=== PATIENT | male | born 1960 | race Caucasian/White ===

== ENCOUNTER 2020-05-25 17:28 | Emergency (ER) | payer OTHER ==
[2020-05-25 18:01] LABS: BASOPHIL 0.9 % (0-2); EOSINOPHIL 2.6 % (0-5); HCT 45.7 % (42.0-52.0); HGB 16.2 g/dl (13.2-18.0); LYMPHOCYTE 14.1 % (15-48); MCH 30.6 pg (25.0-31.0); MCHC 35.4 g/dL (32.0-36.0); MCV 86.2 fL (78.0-100.0); MONOCYTE 6.9 % (0-12); MPV 10.7 fL (6.0-9.5); NEUTROPHIL 75.2 % (41-80); NRBC 0; PLT 197 K/uL (150-400); RDW 12.7 % (11.5-14.0); WBC 9.7 K/uL (4.0-10.5)
[2020-05-25 18:09] LABS: INR 1.02 (0.9-1.2); PROTHROMBIN TIME 12.7 SECONDS (11.4-13.6); PTT 27.6 SECONDS (22.2-34.7)
[2020-05-25 18:25] LABS: CKMB 3.7 ng/mL (0.0-3.6)
[2020-05-25 18:37] LABS: ALBUMIN 4.2 g/dL (3.4-5.0); BILIRUBIN - TOTAL 0.9 mg/dL (0.2-1.0); BUN/CREAT RATIO (CALC) 10.6 RATIO; CREATININE 1.23 mg/dL (0.67-1.17); GLOBULIN (CALCULATION) 3.1 g/dL; POTASSIUM 3.4 mmol/L (3.5-5.1); TOTAL PROTEIN 7.3 g/dL (6.4-8.2)
== END 2020-05-25 21:36 | disposition other institution (70) ==
LOC: FER 17:28
PROVIDERS: Emergency Medicine
DX: I21.4 Non-ST elevation (NSTEMI) myocardial infarction (principal); I48.91 Unspecified atrial fibrillation
CPT/HCPCS: 36415; 71045; 80053; 82553; 84484; 85025; 85610; 85730; 93005; J1644

== ENCOUNTER 2021-07-22 15:07 | Emergency (ER) | payer OTHER ==
[2021-07-22 16:22] LABS: BASOPHIL 0.8 % (0-2); EOSINOPHIL 1.7 % (0-5); HCT 24.9 % (42.0-52.0); HGB 8.4 g/dl (13.2-18.0); LYMPHOCYTE 14.1 % (15-48); MCH 29.9 pg (25.0-31.0); MCHC 33.7 g/dL (32.0-36.0); MCV 88.6 fL (78.0-100.0); MONOCYTE 9.8 % (0-12); MPV 10.6 fL (6.0-9.5); NEUTROPHIL 73.2 % (41-80); NRBC 0; PLT 194 K/uL (150-400); RBC 2.81 M/uL (4.70-6.00); RDW 14.1 % (11.5-14.0); WBC 7.8 K/uL (4.0-10.5)
[2021-07-22 16:39] LABS: ALBUMIN 3.3 g/dL (3.4-5.0); BILIRUBIN - TOTAL 0.7 mg/dL (0.2-1.0); BUN/CREAT RATIO (CALC) 16.8 RATIO; CREATININE 1.85 mg/dL (0.67-1.17); GLOBULIN (CALCULATION) 2.5 g/dL; POTASSIUM 4.2 mmol/L (3.5-5.1); TOTAL PROTEIN 5.8 g/dL (6.4-8.2)
[2021-07-22 17:31] LABS: BILIRUBIN NEGATIVE (NEGATIVE); BLOOD TRACE-INTACT Ery/uL (NEGATIVE); CLARITY CLEAR (CLEAR); COLOR YELLOW (YELLOW); GLUCOSE (U) NORMAL (NORMAL); LEUKOCYTES TRACE Leu/uL (NEGATIVE); NITRITE NEGATIVE (NEGATIVE); PROTEIN NEGATIVE (NEGATIVE); SPECIFIC GRAVITY 1.025 (1.001-1.030); UROBILINOGEN 0.2 mg/dL (0.2-1.0)
[2021-07-22 18:00] LABS: BACTERIA TRACE; CALCIUM OXALATE CRYSTALS TRACE
[2021-07-22 22:55] LABS: HCT 23.5 % (42.0-52.0); HGB 7.7 g/dL (13.2-18.0)
== END 2021-07-22 23:55 | disposition home or self-care (01) ==
LOC: FER 15:07
PROVIDERS: Internal Medicine; Nurse Practitioner Family
DX: K62.5 Hemorrhage of anus and rectum (principal); D50.0 Iron deficiency anemia secondary to blood loss (chronic); N13.2 Hydronephrosis with renal and ureteral calculous obstruction; N18.30 Chronic kidney disease, stage 3 unspecified; E78.5 Hyperlipidemia, unspecified; Z87.442 Personal history of urinary calculi; Z79.899 Other long term (current) drug therapy
CPT/HCPCS: 36415; 80053; 81001; 85014; 85018; 85025; 86850; 86900; 86901; J7030